=== PATIENT | female | born 1990 | race Two or more races ===

== ENCOUNTER 2018-11-18 23:36 | Inpatient (IN) | payer SELFPAY ==
[2018-11-18] MEDS ORDERED: RINGERS SOLUTION,LACTATED 1,000 ML IV PRN (23:46)
[2018-11-18] MEDS ORDERED: MISOPROSTOL 0.2 MG TABLET ONE (23:48)
[2018-11-18] MEDS ORDERED: OXYTOCIN/NORMAL SALINE 20 UNIT/1,000 ML RTUINJ ONE (23:48)
[2018-11-18] MEDS ORDERED: OXYTOCIN 10 UNIT/ML VIAL ONE (23:48)
[2018-11-18] MEDS ORDERED: LIDOCAINE 1% INJ-PF (10 MG/ML) 30 ML SDV ONE (23:48)
[2018-11-18] MEDS ORDERED: PENICILLIN G-K 5 MILLION UNIT VIAL ONE (23:56)
--- NOTE | 2018-11-19 00:06 | Admission Physical ---
Datetime Report Generated by CPN: 11/19/2018 00:06 CURRENT ADMISSION Chief Complaint: Uterine Contractions Indication for Induction: Not Applicable Admit Impression : Term, Intrauterine Admit Plan: Initiate Labor Protocol OBSTETRICAL HISTORY EDC: 11/22/2018 00:00 : 4 Para: 3 : 1 Livin Gestational Diabetes: No Rh Sensitization: No Incompetent Cervix: No AIDA: No Infertility: No ART Treatment: No Uterine Anomaly: No IUGR: No Hx Previous C/S: No Macrosomia: No Hx Loss/Stillborn: No PIH: No Hx : No Placenta Previa/Abruption: No Depression/PP Depression: No PTL/PROM: No Post Hemorrhage: No Current Procedures: None Obstetrical History Comments: G1- G2- G3- G4-Current MEDICAL HISTORY Diabetes: No Blood Transfusion: No Pulmonary Disease (Asthma, TB): No Breast Disease: No Hypertension: No Importer Exporter Surgery: No Heart Disease: No Hosp/Surgery: No Autoimmune Disorder: No Anesthetic Complications: No Kidney Disease: No Abnormal Pap Smear: No Neuro/Epilepsy: No Psychiatric Disorders: No Other Medical Diseases: No Hepatitis/Liver Disease: No Significant Family History: No Varicosities/Phlebitis: No Trauma/Violence : No Thyroid Dysfunction: No INFECTIOUS HISTORY Gonorrhea: No Genital Herpes: No Chlamydia: No Tuberculosis: No Syphilis: No Hepatitis: No HIV/AIDS Exposure: No Rash or Viral Illness: No HPV: No PHYSICAL EXAM General: Normal HEENT: Normal Neurologic: Normal Thyroid: Normal Heart: Normal Lungs: Normal Breast: Deferred Back: Normal Abdomen: Normal Genitourinary Exam: Normal Extremities: Normal DTRs: Normal Pelvic Type: Adequate FETUS A EGA: 39.4 PLANS FOR LABOR AND DELIVERY Labor and Delivery: None Feeding Preference: Breast INFORMED CONSENT Signature: with User ID: [email or web address]
[2018-11-19 00:19] LABS: ABSOLUTE LYMPHOCYTES (AUTO) 1.9 10^3/uL (0.5-4.7); ABSOLUTE MONOCYTES (AUTO) 0.4 10^3/uL (0.1-1.4); ABSOLUTE NEUT (AUTO) 6.9 10^3/uL (1.7-8.2); BASOPHILS % (AUTO) 0.4 % (0-2); EOSINOPHILS % (AUTO) 0.5 % (0-6); HEMATOCRIT 38.7 % (36.0-47.0); HEMOGLOBIN 13.2 g/dL (12.0-15.5); LYMPHOCYTES % (AUTO) 20.1 % (13-45); MEAN CORPUSCULAR HEMOGLOBIN 31.6 pg (27.0-33.4); MEAN CORPUSCULAR HGB CONC 34.2 g/dL (32.0-36.0); MEAN CORPUSCULAR VOLUME 92 fl (80-97); MONOCYTES % (AUTO) 4.3 % (3-13); PLATELET COUNT 174 10^3/uL (150-450); RED BLOOD COUNT 4.19 10^6/uL (3.72-5.28); RED CELL DISTRIBUTION WIDTH 14.4 % (11.5-14.0); SEGMENTED NEUTROPHILS % (AUTO) 74.7 % (42-78); TOTAL CELLS COUNTED % (AUTO) 100 %; WHITE BLOOD COUNT 9.2 10^3/uL (4.0-10.5)
[2018-11-19] MEDS ORDERED: NA PHOS,M-B/NA PHOS,DI-BA (ADULT) 133 ML ENEMA PR PRN (00:21)
[2018-11-19] MEDS ORDERED: OXYTOCIN/NORMAL SALINE 20 UNIT/1,000 ML RTUINJ IV PRN (00:21)
[2018-11-19] MEDS ORDERED: BENZOCAINE/MENTHOL AEROSOL SPRAY 56 ML TOP PRN (00:21)
[2018-11-19] MEDS ORDERED: ACETAMINOPHEN 650 MG SUPP.RECT PR PRN (00:21)
[2018-11-19] MEDS ORDERED: DIBUCAINE 1% OINTMENT 56 GM TP PRN (00:21)
[2018-11-19] MEDS ORDERED: MAGNESIUM HYDROXIDE SUSP 30 ML UDCUP PO PRN (00:21)
[2018-11-19] MEDS ORDERED: DIPH/PERTUSS(ACELL)/TETANUS VAC/PF 0.5 ML SYR (>=10YO) IM PRN (00:21)
[2018-11-19] MEDS ORDERED: ZOLPIDEM TARTRATE 5 MG TABLET PO PRN (00:21)
[2018-11-19] MEDS ORDERED: MEASLES,MUMPS&RUBELLA VACC/PF 0.5 ML VIAL SUBCUT PRN (00:21)
[2018-11-19] MEDS ORDERED: DIPHENHYDRAMINE HCL 25 MG CAPSULE PO PRN (00:21)
[2018-11-19] MEDS ORDERED: PROMETHAZINE HCL 25 MG SUPP.RECT PR PRN (00:21)
[2018-11-19] MEDS ORDERED: PROMETHAZINE HCL INJ 25 MG/1 ML VIAL IV PRN (00:21)
[2018-11-19] MEDS ORDERED: ACETAMINOPHEN WITH CODEINE #3 TABLET PO PRN (00:21)
[2018-11-19] MEDS ORDERED: PROMETHAZINE HCL 25 MG TABLET PO PRN (00:21)
[2018-11-19] MEDS ORDERED: PSEUDOEPHEDRINE HCL 30 MG TABLET PO PRN (00:21)
[2018-11-19] MEDS ORDERED: GLYCERIN/WITCH HAZEL LEAF 1 EACH MED..WIPE TP PRN (00:21)
[2018-11-19] MEDS ORDERED: IBUPROFEN 800 MG TABLET ONE (01:45)
--- NOTE | 2018-11-19 02:20 | Warning Signs in Babies ---
VOD Warning Signs Datetime Report Generated by [facility]: 11/19/2018 02:19 VOD#608 -Warning Signs in Babies: Needs to be viewed. (11/18/2018 23:39:Maxwell Junior RN)
--- NOTE | 2018-11-19 03:19 | Delivery Summary ---
Del Sum A-C Datetime Report Generated by CPN: 11/19/2018 03:19 DELIVERY PERSONNEL DELIVERY PERSONNEL: [id number] Delivery Doctor:: Zuhair Hollis MD Labor and Delivery Nurse:: Maxwell Junior RN Labor and Delivery Nurse:: Johnna Ramos RN Nursery Nurse:: Gill Hollis RN Nursery Nurse:: Gill Hollis RN Patternmaker Metal Bench/COURT REPORTER: Winnie Tobin PRODUCT MANAGENT INTERN MATERNAL INFORMATION Delivery Anesthesia: None Medications After Delivery: Pitocin Bolus-Please Comment Meds After Delivery Comment: pitocin 20 units after placenta delivery Maternal Complications: None LABOR SUMMARY EDC: 11/22/2018 00:00 No. Babies in Womb: 1 Attempted: No Labor Anesthesia: None LABOR INFORMATION Reason for Induction: Not Applicable Onset of Labor: 11/18/2018 06:00 Complete Dilatation: 11/19/2018 00:05 Oxytocin: N/A Group B Beta Strep: negative Antibiotics # of Doses: 1 Antibiotics Time of Last Dose: 0000 Name of Antibiotic Given: PCN Steroids Given: None Reason Steroids Not Administered: Not Applicable MEMBRANES Membranes Rupture Method: Spontaneous Rupture of Membranes: 11/18/2018 06:00 Length of Rupture (hr): 18.15 Amniotic Fluid Color: Clear Amniotic Fluid Amount: Scant Amniotic Fluid Odor: Normal STAGES OF LABOR Stage 1 hr: 18 Stage 1 min: 5 Stage 2 hr: 0 Stage 2 min: 4 Stage 3 hr: 0 Stage 3 min: 3 Total Time in Labor hr: 18 Total Time in Labor min: 12 VAGINAL DELIVERY Episiotomy: None Laceration #1: Perineal Laceration Extension #1: First Degree Laceration Repair: Yes Laceration Repair Note: 2-0 vicryl Sponge Count Correct: N/A Sharps Count Correct: N/A CSECTION DELIVERY Primary Indication: N/A Secondary Indication: N/A CSection Urgency: N/A CSection Incidence: N/A Labor: N/A Elective: N/A CSection Incision: N/A BABY A INFORMATION Delivery Date/Time: 11/19/2018 00:09 Method of Delivery: Vaginal Born in Route : No : N/A Forceps: N/A Vacuum Extraction: N/A Shoulder Dystocia : No PRESENTATION/POSITION BABY A Presentation: Cephalic Cephalic Presentation: Vertex Vertex Position: Right Occipital Anterior Breech Presentation: N/A PLACENTA INFORMATION BABY A Placenta Delivery Time : 11/19/2018 00:12 Placenta Method of Delivery: Spontaneous Placenta Status: Delivered SCORES BABY A Heart Rate 1 min: >100 bpm Resp Effort 1 min: Good Cry Reflex Irritability 1 min: Cough or Sneeze or Pulls Away Muscle Tone 1 min: Active Motion Color 1 min: Body [place], Extremities Blue Resuscitation Effort 1 min: Tactile Stimulation SCORE 1 MIN: 9 Heart Rate 5 min: >100 bpm Resp Effort 5 min: Good Cry Reflex Irritability 5 min: Cough or Sneeze or Pulls Away Muscle Tone 5 min: Active Motion Color 5 min: Body [place], Extremities Blue Resuscitation Effort 5 min: N/A SCORE 5 MIN: 9 INFORMATION BABY A Gestational Age at Delivery: 39.4 Gestational Status: Full Term- 39- 40.6 Weeks Outcome : Liveborn Infant Condition : Stable Sex: Male IDENTIFICATION BABY A Infant Verification Date/Time: 11/19/2018 00:20 ID Band Number: [id number] Mother's Name Verified: Yes RN Verifying Infant: Chalman, A. RN Additional Verifying Personnel: Jayson, K. RN WEIGHT/LENGTH BABY A Infant Birthweight (gm): 2869 Weight (lb): 6 Weight (oz): 5 Length (in): 20.00 Infant Length (cm): 50.80 CORD INFORMATION BABY A No. Cord Vessels: 3 Nuchal Cord : Around Neck x1, Loose Cord Blood Taken: Yes-For Eval (Mom's Blood Type - or O+) Suction: None ASSESSMENT BABY A Complications: None Physical Findings at Delivery: Other Physical Findings- Other: see inital assessment by nursery RN Infant Respirations: Appears Normal Skin to Skin: Yes Skin to Skin Time (min): 45 Instrument Man/ALS Called : No Infant Care By: Alfonso Hollis RN Transferred To: Remains with Mother BABY B INFORMATION : N/A SIGNATURES Signature: with User ID: [email or web address]
[2018-11-19] MEDS: IBUPROFEN 800 MG TABLET PO SCH ×3 (05:37→21:36)
[2018-11-19 08:03] LABS: URINE AMPHETAMINES SCREEN NEGATIVE; URINE BARBITURATES SCREEN NEGATIVE; URINE BENZODIAZEPINES SCREEN NEGATIVE; URINE COCAINE SCREEN NEGATIVE; URINE MARIJUANA (THC) SCREEN NEGATIVE; URINE METHADONE SCREEN NEGATIVE; URINE PHENCYCLIDINE SCREEN NEGATIVE
[2018-11-19 08:08] LABS: APPEARANCE,URINE SLIGHTLY-CLOUDY; BILIRUBIN,URINE NEGATIVE (NEGATIVE); COLOR,URINE YELLOW; GLUCOSE, URINE 150 mg/dL (NEGATIVE); KETONES,URINE NEGATIVE (NEGATIVE); LEUKOCYTE ESTERASE,URINE LARGE (NEGATIVE); NITRITE,URINE NEGATIVE (NEGATIVE); PROTEIN,URINE 100 mg/dL (NEGATIVE); URINE SPECIFIC GRAVITY 1.019
[2018-11-19] MEDS: FERROUS SULFATE 325 MG TABLET PO SCH (10:53)
[2018-11-19] MEDS: FAMOTIDINE 20 MG TABLET PO SCH ×2 (10:53→21:36)
[2018-11-19] MEDS: PRENATAL VITAMIN W DHA CAPSULE PO SCH (10:53)
[2018-11-19] MEDS: DOCUSATE SODIUM 100 MG CAPSULE PO SCH (10:53)
[2018-11-19] MEDS: SENNOSIDES/DOCUSATE 8.6-50 MG 1 EACH TABLET PO SCH (10:53)
[2018-11-20] MEDS: IBUPROFEN 800 MG TABLET PO SCH ×3 (05:15→21:01)
[2018-11-20 06:34] LABS: HEMATOCRIT 35.4 % (36.0-47.0); HEMOGLOBIN 12.1 g/dL (12.0-15.5); MEAN CORPUSCULAR HEMOGLOBIN 31.5 pg (27.0-33.4); MEAN CORPUSCULAR HGB CONC 34.2 g/dL (32.0-36.0); MEAN CORPUSCULAR VOLUME 92 fl (80-97); PLATELET COUNT 174 10^3/uL (150-450); RED BLOOD COUNT 3.85 10^6/uL (3.72-5.28); RED CELL DISTRIBUTION WIDTH 14.9 % (11.5-14.0); WHITE BLOOD COUNT 9.3 10^3/uL (4.0-10.5)
[2018-11-20] MEDS: PRENATAL VITAMIN W DHA CAPSULE PO SCH (09:20)
[2018-11-20] MEDS: FAMOTIDINE 20 MG TABLET PO SCH ×2 (09:20→21:01)
[2018-11-20] MEDS: SENNOSIDES/DOCUSATE 8.6-50 MG 1 EACH TABLET PO SCH (09:20)
[2018-11-20] MEDS: DOCUSATE SODIUM 100 MG CAPSULE PO SCH ×3 (09:20→17:45)
[2018-11-20] MEDS: FERROUS SULFATE 325 MG TABLET PO SCH ×3 (09:20→17:45)
--- NOTE | 2018-11-20 10:44 | PDOC PROGRESS REPORT ---
Subjective-OB Progress Note for:: 11/20/18 - PP Day #1, pt doing well, breast feeding., denies pain or increased bleeding, conference planner in place Physical Exam (OB) Vital Signs: Temp Pulse Resp BP Pulse Ox 98.2 F 56 L 16 112/64 99 11/20/18 07:53 11/20/18 07:53 11/20/18 07:53 11/20/18 07:53 11/20/18 07:53 Intake & Output 11/19/18 11/20/18 11/21/18 06:59 06:59 06:59 Intake Total 200 Balance 200 Weight 60 kg - General General Appearance: Appears well, Alert In distress: None - PIH/Pre-Eclampsia DTR's: 2 + Clonus: Negative Headache: Absent Epigastric Pain: No Visual Changes: No - Lochia Lochia Amount: Small 10-25 ml Lochia Color: Rubra/Red - Abdomen Description: Tender, Soft Hernia Present: No Fundal Description: Firm, Midline Fundal Height: u/u - u/2 - Respiratory Respiratory Status: No respiratory distress - Abdominal Inspection: Normal Distension: No distension - Genitourinary Genitourinary Note: voiding - Extremities Upper extremity: Normal inspection Lower extremities: Normal inspection - Neurological Cognition: Normal Orientation: AAOx4 - Psychological Associated symptoms: Normal affect, Normal mood - Skin Skin Temperature: Warm Skin Moisture: Dry Objective-Diagnostic Laboratory: 11/20/18 06:29 11/20/18 06:29 WBC 9.3 RBC 3.85 Hgb 12.1 Hct 35.4 L MCV 92 MCH 31.5 MCHC 34.2 RDW 14.9 H Plt Count 174 Assessment and Plan(PN) - Assessment and Plan (1) Limited care Qualifiers: Trimester: third trimester Qualified Code(s): O09.33 - Supervision of with insufficient care, third trimester Is this a current diagnosis for this admission?: Yes (2) Obstetrical laceration, first degree Is this a current diagnosis for this admission?: Yes (3) Precipitous delivery, delivered (current hospitalization) Is this a current diagnosis for this admission?: Yes (4) Prolonged rupture of membranes, delivered Is this a current diagnosis for this admission?: Yes (5) Vaginal delivery Is this a current diagnosis for this admission?: Yes - Time Spent with Patient Time with patient: Less than 15 minutes Medications reviewed and adjusted accordingly: Yes - Disposition Anticipated Discharge: Home Within: within 24 hours
[2018-11-21] MEDS: IBUPROFEN 800 MG TABLET PO SCH (05:43)
[2018-11-21 08:17] VITALS: BP 97/59
[2018-11-21] MEDS: DOCUSATE SODIUM 100 MG CAPSULE PO SCH (09:51)
[2018-11-21] MEDS: FAMOTIDINE 20 MG TABLET PO SCH (09:51)
[2018-11-21] MEDS: SENNOSIDES/DOCUSATE 8.6-50 MG 1 EACH TABLET PO SCH (09:51)
[2018-11-21] MEDS: FERROUS SULFATE 325 MG TABLET PO SCH (09:51)
[2018-11-21] MEDS: PRENATAL VITAMIN W DHA CAPSULE PO SCH (09:51)
--- NOTE | 2018-11-21 10:34 | PDOC PROGRESS REPORT ---
Subjective-OB Progress Note for:: 11/21/18 Subjective: Doing well, no c/o per pt using clerical assigner Physical Exam (OB) Vital Signs: Temp Pulse Resp BP Pulse Ox 98.4 F 68 16 97/59 L 98 11/21/18 10:18 11/21/18 10:18 11/21/18 10:18 11/21/18 10:18 11/21/18 10:18 Intake & Output 11/20/18 11/21/18 11/22/18 06:59 06:59 06:59 Intake Total 200 Balance 200 - PIH/Pre-Eclampsia DTR's: 2 + Clonus: Negative Headache: Absent Epigastric Pain: No Visual Changes: No - Lochia Lochia Amount: Small 10-25 ml Lochia Color: Rubra/Red - Abdomen Description: Soft Hernia Present: No Fundal Description: Firm, Midline Fundal Height: u/u - u/2 Objective-Diagnostic Laboratory: 11/20/18 06:29 Assessment and Plan(PN) - Assessment and Plan (1) Limited care Qualifiers: Trimester: third trimester Qualified Code(s): O09.33 - Supervision of with insufficient care, third trimester Is this a current diagnosis for this admission?: Yes (2) Obstetrical laceration, first degree Is this a current diagnosis for this admission?: Yes (3) Precipitous delivery, delivered (current hospitalization) Is this a current diagnosis for this admission?: Yes (4) Prolonged rupture of membranes, delivered Is this a current diagnosis for this admission?: Yes (5) Vaginal delivery Is this a current diagnosis for this admission?: Yes - Time Spent with Patient Time with patient: Less than 15 minutes Medications reviewed and adjusted accordingly: Yes - Disposition Anticipated Discharge: Home Within: within 24 hours
--- NOTE | 2018-11-21 10:41 | PDOC DISCHARGE SUMMARY ---
Final Diagnosis Discharge Date: 11/21/18 - Final Diagnosis (1) Limited care Is this a current diagnosis for this admission?: Yes (2) Obstetrical laceration, first degree Is this a current diagnosis for this admission?: Yes (3) Precipitous delivery, delivered (current hospitalization) Is this a current diagnosis for this admission?: Yes (4) Prolonged rupture of membranes, delivered Is this a current diagnosis for this admission?: Yes (5) Vaginal delivery Is this a current diagnosis for this admission?: Yes Discharge Data - Discharge Medication Home Medications: No Home Medications 11/19/18 Gestational Age: 39.4 Reason(s) for Admission: Onset of Labor Procedures: Ultrasound Intrapartum Procedure(s): Spontaneous Vaginal Delivery Complication(s): Laceration-Perineal Laceration-Degree: 1st - Diagnosis Test Laboratory: Temp Pulse Resp BP Pulse Ox 98.4 F 68 16 97/59 L 98 11/21/18 10:18 11/21/18 10:18 11/21/18 10:18 11/21/18 10:18 11/21/18 10:18 11/19/18 11/19/18 11/20/18 00:05 07:20 06:29 RBC 4.19 3.85 Hgb 13.2 12.1 Hct 38.7 35.4 L Urine Opiates Screen NEGATIVE - Discharge information/Instructions Discharge Activity: Activity As Tolerated, Balance Activity w/Rest, No tub bath Discharge Diet: As Tolerated, Regular Disposition: HOME, SELF-CARE Follow up with: [facility] in: 2, Weeks - discharge instructions in hebrew
== END 2018-11-21 14:03 | disposition home or self-care (01) | DRG 807 ==
LOC: LC 23:36 → LR 23:48 → 2S 11-19 02:48
PROVIDERS: ADMIT Obstetrics & Gynecology Gynecology; ATTEND Obstetrics & Gynecology Gynecology
PROC: 10E0XZZ Delivery of Products of Conception, External Approach (ICD-10-PCS; principal; 2018-11-19)
PROC: 0HQ9XZZ Repair Perineum Skin, External Approach (ICD-10-PCS; 2018-11-19)
DX: O69.81X0 Labor and delivery complicated by cord around neck, without compression, not applicable or unspecified (principal); Z37.0 Single live birth; O62.3 Precipitate labor; O42.02 Full-term premature rupture of membranes, onset of labor within 24 hours of rupture; O70.0 First degree perineal laceration during delivery; Z3A.39 39 weeks gestation of pregnancy
CPT/HCPCS: 36415; 80307; 81005; 85025; 85027; 86592; 86850; 86900; 86901; J2540; J2590; J3490

== ENCOUNTER → 2019-12-21 | Outpatient (CLI) | payer SELFPAY ==
--- NOTE | 2019-12-21 15:28 | RADIOLOGY REPORT (SQ) ---
EXAM DESCRIPTION: U/S OB 14+ TA/1 GEST W/DOPPLER IMAGES COMPLETED DATE/TIME: 12/21/2019 1:49 pm REASON FOR STUDY: ENCTR FOR SUPERVISION OF OTHER NORMAL , 2ND TRIMESTER (Z34.82) Z34.82 EN COUNTER FOR SUPRVSN OF NORMAL , SECOND TRI COMPARISON: None. TECHNIQUE: Static and Dynamic grayscale imaging performed of gravid uterus using transabdominal appr oach. Additional selected color Doppler and spectral images recorded. All stored on PACS. LIMITATIONS: None. FINDINGS: FETUSES SEEN:1 EGA: 32 week 0 days. Calculated using BPD,FL,HC,AC documented on images. Clinical dates are unknown. MARISEL: 02/15/2020 EFW: 1,943 grams SANAZ: 13.5 PLACENTA: Anterior location. GRADE: I PRESENTATION: Cephalic. ANATOMY: HEART RATE: 147 beats per minute. FOUR CHAMBER HEART: Visualized. THREE VESSEL CORD: Yes. CORD INSERTION: Visualized. KIDNEYS AND BLADDER: Visualized. Appear normal. STOMACH: Visualized. Appears normal. SPINE: Normal as visualized. BRAIN AND LATERAL VENTRICLES: Visualized. Appear normal. OTHER: No other significant finding. MATERNAL ADNEXA: Maternal ovaries not visualized. CERVICAL LENGTH: 3.3 cm. Closed. OTHER: No other significant finding. IMPRESSION: LIVING INTRAUTERINE . ESTIMATED GESTATIONAL AGE 32 WEEKS 0 DAYS. NO VISUALIZED ANOMALIES. Trimester of : Third trimester - 28 weeks to delivery. TECHNICAL DOCUMENTATION: JOB ID: [id number] 2010 [employer]- All Rights Reserved Reading location - IP/workstation name: [email or web address]
== END ==
LOC: RAD 12:50
PROVIDERS: ATTEND Midwife
DX: Z34.83 Encounter for supervision of other normal pregnancy, third trimester (principal); Z3A.32 32 weeks gestation of pregnancy
CPT/HCPCS: 76805; 93976

== ENCOUNTER 2020-02-17 23:07 | Inpatient (IN) | payer SELFPAY ==
[2020-02-17] MEDS ORDERED: LIDOCAINE 1% INJ-PF (10 MG/ML) 30 ML SDV ONE (23:30)
[2020-02-17] MEDS ORDERED: OXYTOCIN 10 UNIT/ML VIAL ONE (23:30)
[2020-02-17] MEDS ORDERED: OXYTOCIN/0.9 % SODIUM CHLORIDE 30 UNIT/500 ML RTUINJ ONE (23:30)
[2020-02-17] MEDS ORDERED: MISOPROSTOL 0.2 MG TABLET ONE (23:30)
--- NOTE | 2020-02-17 23:39 | Admission Physical ---
Datetime Report Generated by CPN: 02/17/2020 23:38 CURRENT ADMISSION Chief Complaint: Uterine Contractions Indication for Induction: Not Applicable Admit Impression : Term, Intrauterine ; Active Labor Admit Plan: Admit to Unit ALLERGIES Medication Allergies: No Known Allergies (11/19/2018) OBSTETRICAL HISTORY EDC: 02/15/2020 00:00 : 5 Para: 2 Term: 1 : 1 Ectopic: 0 Livin Cesareans: 0 VBACs: 0 Multiple Births: 0 PHYSICAL EXAM General: Normal HEENT: Normal Neurologic: Normal Thyroid: Normal Heart: Normal Lungs: Normal Breast: Deferred Back: Normal Abdomen: Normal Genitourinary Exam: Normal Extremities: Normal DTRs: Normal Pelvic Type: Adequate Vital Signs: Reviewed VAGINAL EXAM Dilatation: 10 Effacement: 100 Station: 0 MEMBRANES Pooling: Positive Membranes: Ruptured FETUS A EGA: 40.2 Monitoring: External US FHR- Baseline: 120 FHR Category: Category I Estimated Weight (gm): 3600 Presentation: Vertex Admit Comment: admit for labor INFORMED CONSENT Signature: with User ID: [email or web address]
[2020-02-17] MEDS ORDERED: RINGERS SOLUTION,LACTATED 1,000 ML IV PRN (23:42)
[2020-02-17] MEDS ORDERED: PENICILLIN G POTASSIUM 5,000,000 UNIT in DEXTROSE 5%-WATER 100 ML IV ONE (23:50)
[2020-02-17] MEDS ORDERED: PENICILLIN G-K 5 MILLION UNIT VIAL ONE (23:51)
[2020-02-18 00:08] LABS: ABSOLUTE LYMPHOCYTES (AUTO) 2.2 10^3/uL (0.5-4.7); ABSOLUTE MONOCYTES (AUTO) 0.4 10^3/uL (0.1-1.4); BASOPHILS % (AUTO) 0.3 % (0-2); EOSINOPHILS % (AUTO) 0.2 % (0-6); HEMOGLOBIN 12.3 g/dL (12.0-15.5); LYMPHOCYTES % (AUTO) 25.8 % (13-45); MEAN CORPUSCULAR HEMOGLOBIN 32.6 pg (27.0-33.4); MEAN CORPUSCULAR HGB CONC 35.1 g/dL (32.0-36.0); MEAN CORPUSCULAR VOLUME 93 fl (80-97); MONOCYTES % (AUTO) 4.8 % (3-13); PLATELET COUNT 226 10^3/uL (150-450); RED BLOOD COUNT 3.76 10^6/uL (3.72-5.28); RED CELL DISTRIBUTION WIDTH 15.4 % (11.5-14.0); SEGMENTED NEUTROPHILS % (AUTO) 68.9 % (42-78); TOTAL CELLS COUNTED % (AUTO) 100 %; WHITE BLOOD COUNT 8.6 10^3/uL (4.0-10.5)
[2020-02-18 00:08] LABS: APPEARANCE,URINE CLEAR; BILIRUBIN,URINE NEGATIVE (NEGATIVE); COLOR,URINE YELLOW; GLUCOSE, URINE NEGATIVE (NEGATIVE); KETONES,URINE NEGATIVE (NEGATIVE); LEUKOCYTE ESTERASE,URINE TRACE (NEGATIVE); NITRITE,URINE NEGATIVE (NEGATIVE); PROTEIN,URINE 30 mg/dL (NEGATIVE); UROBILINOGEN,URINE NEGATIVE mg/dL (<2.0)
[2020-02-18] MEDS ORDERED: PROMETHAZINE HCL INJ 25 MG/1 ML VIAL IV PRN (00:20)
[2020-02-18] MEDS ORDERED: PROMETHAZINE HCL 25 MG SUPP.RECT PR PRN (00:20)
[2020-02-18] MEDS ORDERED: ACETAMINOPHEN 650 MG SUPP.RECT PR PRN (00:20)
[2020-02-18] MEDS ORDERED: BENZOCAINE/MENTHOL AEROSOL SPRAY 56 ML TOP PRN (00:20)
[2020-02-18] MEDS ORDERED: MAGNESIUM HYDROXIDE SUSP 30 ML UDCUP PO PRN (00:20)
[2020-02-18] MEDS ORDERED: PROMETHAZINE HCL 25 MG TABLET PO PRN (00:20)
[2020-02-18] MEDS ORDERED: DIPH/PERTUSS(ACELL)/TETANUS VAC/PF 0.5 ML SYR (>=10YO) IM PRN (00:20)
[2020-02-18] MEDS ORDERED: ZOLPIDEM TARTRATE 5 MG TABLET PO PRN (00:20)
[2020-02-18] MEDS ORDERED: DIBUCAINE 1% OINTMENT 28 GM TP PRN (00:20)
[2020-02-18] MEDS ORDERED: DIPHENHYDRAMINE HCL 25 MG CAPSULE PO PRN (00:20)
[2020-02-18] MEDS ORDERED: ACETAMINOPHEN WITH CODEINE #3 TABLET PO PRN ×2 (00:20)
[2020-02-18] MEDS ORDERED: NA PHOS,M-B/NA PHOS,DI-BA (ADULT) 133 ML ENEMA PR PRN (00:20)
[2020-02-18] MEDS ORDERED: MEASLES,MUMPS&RUBELLA VACC/PF 0.5 ML VIAL SUBCUT PRN (00:20)
[2020-02-18] MEDS ORDERED: PSEUDOEPHEDRINE HCL 30 MG TABLET PO PRN (00:20)
[2020-02-18] MEDS ORDERED: OXYTOCIN/0.9 % SODIUM CHLORIDE 30 UNIT/500 ML RTUINJ IV PRN (00:20)
[2020-02-18] MEDS ORDERED: GLYCERIN/WITCH HAZEL LEAF 1 EACH MED..WIPE TP PRN (00:20)
[2020-02-18 00:37] LABS: URINE AMPHETAMINES SCREEN NEGATIVE; URINE BARBITURATES SCREEN NEGATIVE; URINE BENZODIAZEPINES SCREEN NEGATIVE; URINE COCAINE SCREEN NEGATIVE; URINE MARIJUANA (THC) SCREEN NEGATIVE; URINE METHADONE SCREEN NEGATIVE; URINE PHENCYCLIDINE SCREEN NEGATIVE
[2020-02-18] MEDS ORDERED: IBUPROFEN 800 MG TABLET ONE (01:31)
--- NOTE | 2020-02-18 03:50 | Birth Certificate Data ---
Cert Data Datetime Report Generated by [facility]: 02/18/2020 03:49 CERTIFICATE DATA 47a. Care: Yes (02/17/2020 23:11:Melisa Colvin RN) 47b. Date of First Visit: 12/12/2019 00:00 (02/17/2020 23:11:Lynne Barnard RN) 47c. Date of Last Visit: 01/23/2020 00:00 (02/17/2020 23:11:Lynne Barnard RN) 47d. Number of Visits: 3 (02/17/2020 23:11:Lynne Barnard RN) 48a. Number of Prev Live Births: 2 (02/17/2020 23:11:Melisa Colvin RN) 48b. Now Livin (02/17/2020 23:11:Melisa Colvin RN) 48c. Live Births Now : 0 (02/17/2020 23:11:QS system process) 48e. Losses: 2 (02/17/2020 23:11:Melisa Colvin RN) RISK FACTORS IN THIS 49a. Diabetes: No (Annotations: Data stored by N on behalf of user) (02/17/2020 23:11:Lynne Barnard RN) 49b. Hypertension: No (02/17/2020 23:11:Lynne Barnard RN) 49c. Previous Births: 1 (02/17/2020 23:11:Melisa Colvin RN) 49d. Stillborns: Yes (02/17/2020 23:11:Lynne Barnard RN) 49d. IUGR: No (02/17/2020 23:11:Lynne Barnard RN) 49e. Infertility Treatment: No (02/17/2020 23:11:Lynne Barnard RN) 49f. Previous Cesareans: 0 (02/17/2020 23:11:Melisa Colivn RN) Mother's Height 50b. Height Inches: 24 (02/17/2020 23:11:QS system process) Mother's Weight 51a. Pre- Weight (lbs): 126 (02/17/2020 23:11:Lynne Barnard RN) Infections Present/Treated 53a. Gonorrhea: No (02/17/2020 23:11:Lynne Barnard RN) Results this Hospital Visit : Negative (02/17/2020 23:11:Maxwell Junior RN) 53b. Syphilis: No (02/17/2020 23:11:Lynne Barnard RN) 53c. Chlamydia: No (02/17/2020 23:11:Lynne Barnard RN) Results this Hospital Visit: Negative (02/17/2020 23:11:Lynne Barnard RN) 53d. Hepatitis B: No (02/17/2020 23:11:Lynne Barnard RN) Results this Hospital Visit: Negative (02/17/2020 23:11:Maxwell Junior RN) 53e. Hepatitis C: Negative (02/17/2020 23:11:Maxwell Junior RN) 53h. Mother Tested for HBsAG: Yes (02/17/2020 23:11:Maxwell Junior RN) 53i. Date Tested: 01/02/2020 00:00 (02/17/2020 23:11:Maxwell Junior RN) 53j. Test Result: Negative (02/17/2020 23:11:Maxwell Junior RN) Obstetric Procedures 54a, b, c. Obstetric Procedures: Ultrasound (02/17/2020 23:11:Lynne Barnard RN) Onset of Labor 56a. PROM >12 Hrs: 8.47 (02/17/2020 23:11:QS system process) 57a. Induction of Labor: N/A (02/17/2020 23:11:Lynne Barnard RN) 57c. Non-Vertex Presentation A: Vertex (02/17/2020 23:11:Lawrence Musa MD ([facility])) 57d. Steroids - Lung Mat: None (02/17/2020 23:11:Lawrence Musa MD ([facility])) 57d. Steroids - Lung Mat: Not Applicable (02/17/2020 23:11:Lawrence Musa MD ([facility])) 57e. Antibiotics During Labor: 02/17/2020 23:30 (02/17/2020 23:11:Lynne Barnard RN) 57g. Moderate/Heavy Meconium: Clear (02/17/2020 23:11:Lynne Barnard RN) 57h. Intolerance of Labor: N/A (02/17/2020 23:11:Lynne Barnard RN) : N/A (02/17/2020 23:11:Lynne Barnard RN) 57i. Epidural/Spinal Anesthesia: None (02/17/2020 23:11:Lynne Barnard RN) Method of Delivery 58a. Forceps - Unsuccessful A: N/A (02/17/2020 23:11:Lynne Barnard RN) 58b. Vacuum - Unsuccessful A: N/A (02/17/2020 23:11:Lynne Barnard RN) 58c. Presentation at 58c. Presentation at - A : Vertex (02/17/2020 23:11:Lawrence Musa MD ([facility])) 58c. Presentation at - A : N/A (02/17/2020 23:11:Lawrence Musa MD ([facility])) 58c. Presentation at - A : Cephalic (02/17/2020 23:11:Lawrence Musa MD ([facility])) Final Route and Method of Del 58d. Baby A Route/Delivery: Vaginal (02/17/2020 23:11:Lynne Barnard RN) 58e. Trial of Labor Attempted: No (02/17/2020 23:11:Lynne Barnard RN) 58e. Trial of Labor Attempted A: N/A (02/17/2020 23:11:Lynne Barnard RN) 58e. Trial of Labor Attempted B: N/A (02/17/2020 23:11:Lynne Barnard RN) Maternal Morbidity 59b. 3rd or 4th Degree Lacs: None (02/17/2020 23:11:Damdalila Musa MD ([facility])) Birthweight Baby A: 3192 (02/17/2020 23:11:Gill WILEY Hollis) 60a. Pounds : 7 (02/17/2020 23:11:QS system process) 60b. Ounces: 1 (02/17/2020 23:11:QS system process) 61. GA at Delivery Baby A: 40.3 (02/17/2020 23:11:Lynne Barnard RN) : Full Term- 39- 40.6 Weeks (02/17/2020 23:11:QS system process)
--- NOTE | 2020-02-18 03:50 | Delivery Summary ---
Del Sum A-C Datetime Report Generated by CPN: 02/18/2020 03:49 DELIVERY PERSONNEL DELIVERY PERSONNEL: [id number] Delivery Doctor:: Lawrence Musa MD Labor and Delivery Nurse:: Lynne Barnard RNgraphite grinder Nurse:: Mable Iglesias RN House Mover Helper/COMPENSATION VICE PRESIDENT: Cristomanuel Giles, HOTEL NIGHT AUDITOR MATERNAL INFORMATION Delivery Anesthesia: None Medications After Delivery: Pitocin 30 Units in 500ml NS/D5W Estimated Blood Loss (ml): 250 Delivery QBL: 200 Maternal Complications: None LABOR SUMMARY EDC: 02/15/2020 00:00 No. Babies in Womb: 1 Attempted: No Labor Anesthesia: None LABOR INFORMATION Reason for Induction: Not Applicable Onset of Labor: 02/17/2020 17:00 Complete Dilatation: 02/18/2020 00:00 Oxytocin: N/A Group B Beta Strep: Positive Antibiotics # of Doses: 1 Antibiotics Time of Last Dose: 02/17/2020 23:30 Name of Antibiotic Given: Penicillin Steroids Given: None Reason Steroids Not Administered: Not Applicable MEMBRANES Membranes Rupture Method: Spontaneous Rupture of Membranes: 02/17/2020 16:00 Length of Rupture (hr): 8.47 Amniotic Fluid Color: Clear STAGES OF LABOR Stage 1 hr: 7 Stage 1 min: 0 Stage 2 hr: 0 Stage 2 min: 28 VAGINAL DELIVERY Episiotomy: None Laceration #1: None Laceration Extension #1: N/A Laceration #2: None Laceration Extension #2: N/A Laceration #3: None Laceration Extension #3: N/A Laceration Repair: Not Applicable Sponge Count Correct: Vaginal Sweep Performed Sharps Count Correct: Yes CSECTION DELIVERY Primary Indication: N/A Secondary Indication: N/A CSection Incidence: N/A Labor: N/A Elective: N/A CSection Incision: N/A BABY A INFORMATION Infant Delivery Date/Time: 02/18/2020 00:28 Method of Delivery: Vaginal Nurse Controlled Delivery: No Born in Route : No : N/A Forceps: N/A Vacuum Extraction: N/A Shoulder Dystocia : No PRESENTATION/POSITION BABY A Presentation: Cephalic Cephalic Presentation: Vertex Vertex Position: Right Occipital Anterior Breech Presentation: N/A PLACENTA INFORMATION BABY A Placenta Method of Delivery: Spontaneous Placenta Status: Delivered SCORES BABY A Reflex Irritability 5 min: Cough or Sneeze or Pulls Away Resuscitation Effort 5 min: Tactile Stimulation INFANT INFORMATION BABY A Gestational Age at Delivery: 40.3 Gestational Status: Full Term- 39- 40.6 Weeks Outcome : Liveborn Infant Condition : Stable Infant Sex: Male IDENTIFICATION BABY A Infant Verification Date/Time: 02/18/2020 00:44 ID Band Number: [id number] Mother's Name Verified: Yes Infant RN Verifying : Shine Francis WILEY Additional Verifying Personnel: Jenn Colvin RN WEIGHT/LENGTH BABY A Birthweight (gm): 3192 Infant Weight (lb): 7 Weight (oz): 1 Infant Length (in): 19.50 Length (cm): 49.53 CORD INFORMATION BABY A No. Cord Vessels: 3 Nuchal Cord : N/A Cord Blood Taken: Yes-For Eval (Mom's Blood Type - or O+) Suction: None ASSESSMENT BABY A Infant Complications: None Physical Findings at Delivery: Other Physical Findings- Other: see nursery nurse assessment Respirations: Appears Normal Skin to Skin: No Museum Host/Hostess/ALS Called : No Care By: Abdirashid Iglesias RN Transferred To: Remains with Mother BABY B INFORMATION : N/A SIGNATURES Signature: with User ID: [email or web address]
[2020-02-18] MEDS ORDERED: PENICILLIN G POTASSIUM 2,500,000 UNIT in DEXTROSE 5%-WATER 50 ML IV SCH (03:51)
[2020-02-18] MEDS: IBUPROFEN 800 MG TABLET PO SCH ×3 (05:25→21:46)
--- NOTE | 2020-02-18 10:04 | PDOC PROGRESS REPORT ---
Subjective-OB Progress Note for:: 02/18/20 Subjective: holding baby, no c/o, Physical Exam (OB) Vital Signs: Temp Pulse Resp BP Pulse Ox 97.5 F 51 L 16 113/56 L 99 02/18/20 07:26 02/18/20 07:26 02/18/20 07:26 02/18/20 07:26 02/18/20 07:26 Intake & Output 02/17/20 02/18/20 02/19/20 06:59 06:59 06:59 Intake Total 320 Balance 320 - PIH/Pre-Eclampsia DTR's: 1 + Clonus: Negative Headache: Absent Epigastric Pain: No Visual Changes: No - Maternal Morbidity 59. Maternal Morbidity (serious complications experinced by the mother associa jamie with labor and delivery: None of the above - Lochia Lochia Amount: Scant < 10 ml Lochia Color: Rubra/Red - Abdomen Description: Soft Hernia Present: No Fundal Description: Firm, Midline Fundal Height: u/u - u/2 Objective-Diagnostic Laboratory: 02/17/20 23:53 02/17/20 02/17/20 02/17/20 23:09 23:53 23:53 WBC 8.6 RBC 3.76 Hgb 12.3 Hct 35.0 L MCV 93 MCH 32.6 MCHC 35.1 RDW 15.4 H Plt Count 226 Seg Neutrophils % 68.9 Urine Color YELLOW Urine Appearance CLEAR Urine pH 6.0 Ur Specific [place] 1.020 Urine Protein 30 H Urine Glucose (UA) NEGATIVE Urine Ketones NEGATIVE Urine Blood SMALL H Urine Nitrite NEGATIVE Ur Leukocyte Esterase TRACE H Blood Type O POSITIVE Antibody Screen NEGATIVE Assessment and Plan(PN) - Assessment and Plan (1) Limited care Qualifiers: Trimester: unspecified trimester Qualified Code(s): O09.30 - Supervision of with insufficient care, unspecified trimester Is this a current diagnosis for this admission?: Yes (2) Vaginal delivery Is this a current diagnosis for this admission?: Yes (3) Obstetrical laceration, first degree Is this a current diagnosis for this admission?: Yes (4) Prolonged rupture of membranes, delivered Is this a current diagnosis for this admission?: Yes (5) Precipitous delivery, delivered (current hospitalization) Is this a current diagnosis for this admission?: Yes - Time Spent with Patient Time with patient: Less than 15 minutes Medications reviewed and adjusted accordingly: Yes - Disposition Anticipated Discharge Disposition: Home, Self Care Anticipated Discharge Timeframe: within 48 hours
[2020-02-18] MEDS: PRENATAL VITAMIN W DHA CAPSULE PO SCH (10:47)
[2020-02-18] MEDS: DOCUSATE SODIUM 100 MG CAPSULE PO SCH ×2 (10:47→17:20)
[2020-02-18] MEDS: SENNOSIDES/DOCUSATE 8.6-50 MG 1 EACH TABLET PO SCH (10:47)
[2020-02-18] MEDS: FERROUS SULFATE 325 MG TABLET PO SCH ×2 (10:47→17:21)
[2020-02-18] MEDS: FAMOTIDINE 20 MG TABLET PO SCH ×2 (10:47→21:45)
[2020-02-19] MEDS: IBUPROFEN 800 MG TABLET PO SCH ×3 (06:11→21:48)
[2020-02-19 08:02] LABS: HEMATOCRIT 35.5 % (36.0-47.0); MEAN CORPUSCULAR HEMOGLOBIN 31.7 pg (27.0-33.4); MEAN CORPUSCULAR HGB CONC 33.8 g/dL (32.0-36.0); MEAN CORPUSCULAR VOLUME 94 fl (80-97); PLATELET COUNT 211 10^3/uL (150-450); RED BLOOD COUNT 3.78 10^6/uL (3.72-5.28); RED CELL DISTRIBUTION WIDTH 15.4 % (11.5-14.0); WHITE BLOOD COUNT 7.5 10^3/uL (4.0-10.5)
[2020-02-19] MEDS: PRENATAL VITAMIN W DHA CAPSULE PO SCH (09:13)
[2020-02-19] MEDS: FAMOTIDINE 20 MG TABLET PO SCH ×2 (09:13→21:48)
[2020-02-19] MEDS: SENNOSIDES/DOCUSATE 8.6-50 MG 1 EACH TABLET PO SCH (09:13)
[2020-02-19] MEDS: FERROUS SULFATE 325 MG TABLET PO SCH ×2 (09:14→17:07)
[2020-02-19] MEDS: DOCUSATE SODIUM 100 MG CAPSULE PO SCH ×2 (09:14→17:07)
--- NOTE | 2020-02-19 10:01 | PDOC PROGRESS REPORT ---
Subjective-OB Progress Note for:: 02/19/20 - PP Day #1, doing well, denies complaints for pain or bleeding, O+, rubella immune, bottlefeeding Physical Exam (OB) Vital Signs: Temp Pulse Resp BP Pulse Ox 97.5 F 52 L 17 126/71 H 99 02/19/20 07:50 02/19/20 07:50 02/19/20 07:50 02/19/20 07:50 02/19/20 07:50 Intake & Output 02/18/20 02/19/20 02/20/20 06:59 06:59 06:59 Intake Total 900 360 Balance 900 360 - General General Appearance: Appears well, Alert In distress: None - PIH/Pre-Eclampsia DTR's: 2 + Clonus: Negative Headache: Absent Epigastric Pain: No Visual Changes: No - Maternal Morbidity 59. Maternal Morbidity (serious complications experinced by the mother associated with labor and delivery: None of the above - Lochia Lochia Amount: Scant < 10 ml Lochia Color: Rubra/Red - Abdomen Description: Soft Hernia Present: No Fundal Description: Firm, Midline Fundal Height: u/u - u/2 - Respiratory Respiratory Status: No respiratory distress - Abdominal Distension: No distension Tenderness: Nontender - Genitourinary Genitourinary Note: voiding - Extremities Upper extremity: Normal inspection Lower extremities: Normal inspection Objective-Diagnostic Laboratory: 02/19/20 07:05 02/19/20 07:05 WBC 7.5 RBC 3.78 Hgb 12.0 Hct 35.5 L MCV 94 MCH 31.7 MCHC 33.8 RDW 15.4 H Plt Count 211 Assessment and Plan(PN) - Assessment and Plan (1) Limited care Qualifiers: Trimester: unspecified trimester Qualified Code(s): O09.30 - Supervision of with insufficient care, unspecified trimester Is this a current diagnosis for this admission?: Yes (2) Obstetrical laceration, first degree Is this a current diagnosis for this admission?: Yes (3) Precipitous delivery, delivered (current hospitalization) Is this a current diagnosis for this admission?: Yes (4) Prolonged rupture of membranes, delivered Is this a current diagnosis for this admission?: Yes (5) Vaginal delivery Is this a current diagnosis for this admission?: Yes - Time Spent with Patient Time with patient: Less than 15 minutes Medications reviewed and adjusted accordingly: Yes - Disposition Anticipated Discharge Disposition: Home, Self Care Anticipated Discharge Timeframe: within 24 hours
[2020-02-20] MEDS: IBUPROFEN 800 MG TABLET PO SCH ×2 (06:03→13:52)
[2020-02-20 08:17] VITALS: BP 103/71
[2020-02-20] MEDS: FERROUS SULFATE 325 MG TABLET PO SCH (09:46)
[2020-02-20] MEDS: PRENATAL VITAMIN W DHA CAPSULE PO SCH (09:46)
[2020-02-20] MEDS: FAMOTIDINE 20 MG TABLET PO SCH (09:46)
[2020-02-20] MEDS: SENNOSIDES/DOCUSATE 8.6-50 MG 1 EACH TABLET PO SCH (09:46)
[2020-02-20] MEDS: DOCUSATE SODIUM 100 MG CAPSULE PO SCH (09:46)
--- NOTE | 2020-02-20 14:51 | PDOC DISCHARGE SUMMARY ---
Impression - Admit/DC Date/PCP Admission Date/Primary Care Provider: 02/17/20 23:36 YOSVANY GASTON MD Discharge Date: 02/20/20 - Discharge Diagnosis (1) Limited care Is this a current diagnosis for this admission?: Yes (2) Vaginal delivery Is this a current diagnosis for this admission?: Yes - Assessment Summary: 29yo s/p ppd 2 stable and ready for discharge. Understands warning s/s as well as reasons to rtc/[facility]. - Additional Information Resuscitation Status: Full Code Discharge Diet: As Tolerated, Regular Discharge Activity: Activity As Tolerated, Balance Activity w/Rest, No Lifting Over 10 Pounds, Pelvic Rest, No tub bath, Walk Frequently Referrals: YOSVANY GASTON MD [Primary Care Provider] - Prescriptions: Ibuprofen [Motrin 800 mg Tablet] 800 mg PO Q8HP PRN #20 tablet PRN Reason: For Pain Scale 1-3 Vit/Dha [ Multi + Dha Capsule] 1 cap PO DAILY #90 capsule Home Medications: Ibuprofen [Motrin 800 mg Tablet] 800 mg PO Q8HP PRN #20 tablet 02/20/20 Vit/Dha [ Multi + Dha Capsule] 1 cap PO DAILY #90 capsule 02/20/20 Hospital Course 59. Maternal Morbidity (serious complications experinced by the mother associated with labor and delivery: None of the above Results Laboratory Results: WBC 7.5 10^3/uL (4.0-10.5) 02/19/20 07:05 RBC 3.78 10^6/uL (3.72-5.28) 02/19/20 07:05 Hgb 12.0 g/dL (12.0-15.5) 02/19/20 07:05 Hct 35.5 % (36.0-47.0) L 02/19/20 07:05 MCV 94 fl (80-97) 02/19/20 07:05 MCH 31.7 pg (27.0-33.4) 02/19/20 07:05 MCHC 33.8 g/dL (32.0-36.0) 02/19/20 07:05 RDW 15.4 % (11.5-14.0) H 02/19/20 07:05 Plt Count 211 10^3/uL (150-450) 02/19/20 07:05 Lymph % (Auto) 25.8 % (13-45) 02/17/20 23:53 [place] % (Auto) 4.8 % (3-13) 02/17/20 23:53 Eos % (Auto) 0.2 % (0-6) 02/17/20 23:53 Baso % (Auto) 0.3 % (0-2) 02/17/20 23:53 Absolute Neuts (auto) 6.0 10^3/uL (1.7-8.2) 02/17/20 23:53 Absolute Lymphs (auto) 2.2 10^3/uL (0.5-4.7) 02/17/20 23:53 Absolute Monos (auto) 0.4 10^3/uL (0.1-1.4) 02/17/20 23:53 Absolute Eos (auto) 0.0 10^3/uL (0.0-0.6) 02/17/20 23:53 Absolute Basos (auto) 0.0 10^3/uL (0.0-0.2) 02/17/20 23:53 Seg Neutrophils % 68.9 % (42-78) 02/17/20 23:53 Urine Color YELLOW 02/17/20 23:09 Urine Appearance CLEAR 02/17/20 23:09 Urine pH 6.0 (5.0-9.0) 02/17/20 23:09 Ur Specific [place] 1.020 02/17/20 23:09 Urine Protein 30 mg/dL (NEGATIVE) H 02/17/20 23:09 Urine Glucose (UA) NEGATIVE mg/dL (NEGATIVE) 02/17/20 23:09 Urine Ketones NEGATIVE mg/dL (NEGATIVE) 02/17/20 23:09 Urine Blood SMALL (NEGATIVE) H 02/17/20 23:09 Urine Nitrite NEGATIVE (NEGATIVE) 02/17/20 23:09 Urine Bilirubin NEGATIVE (NEGATIVE) 02/17/20 23:09 Urine Urobilinogen NEGATIVE mg/dL (<2.0) 02/17/20 23:09 Ur Leukocyte Esterase TRACE (NEGATIVE) H 02/17/20 23:09 Urine Ascorbic Acid NEGATIVE (NEGATIVE) 02/17/20 23:09 Urine Opiates Screen NEGATIVE 02/17/20 23:09 Urine Methadone Screen NEGATIVE 09/13/20 23:09 Ur Barbiturates Screen NEGATIVE 02/17/20 23:09 Ur Phencyclidine Scrn NEGATIVE 02/17/20 23:09 Ur Amphetamines Screen NEGATIVE 02/17/20 23:09 U Benzodiazepines Scrn NEGATIVE 02/17/20 23:09 Urine Cocaine Screen NEGATIVE 02/17/20 23:09 U Marijuana (THC) Screen NEGATIVE 02/17/20 23:09 RPR NONREACTIVE (NONREACTIVE) 02/17/20 23:53 Blood Type O POSITIVE 02/17/20 23:53 Antibody Screen NEGATIVE 02/17/20 23:53
== END 2020-02-20 16:50 | disposition home or self-care (01) | DRG 807 ==
LOC: LC 23:07 → LR 23:36 → 2S 02-18 04:25
PROVIDERS: ADMIT Obstetrics & Gynecology; ATTEND Obstetrics & Gynecology
PROC: 10E0XZZ Delivery of Products of Conception, External Approach (ICD-10-PCS; principal; 2020-02-18)
PROC: 0HQ9XZZ Repair Perineum Skin, External Approach (ICD-10-PCS; 2020-02-18)
DX: O42.02 Full-term premature rupture of membranes, onset of labor within 24 hours of rupture (principal); Z37.0 Single live birth; O70.0 First degree perineal laceration during delivery; O62.3 Precipitate labor; O99.824 Streptococcus B carrier state complicating childbirth; Z03.818 Encounter for observation for suspected exposure to other biological agents ruled out; Z3A.40 40 weeks gestation of pregnancy
CPT/HCPCS: 36415; 80307; 81005; 85025; 85027; 86592; 86850; 86900; 86901; J2540; J2590; J3490; J7060